=== PATIENT | female | born 1980 | race Hispanic/Latino ===

== ENCOUNTER 2016-10-22 07:17 | Emergency (ER) | payer OTHER ==
[2016-10-22 07:53] LABS: Hematocrit 44.7 % (30.3-42.9); Hemoglobin 15.2 gm/dl (10.1-14.3); Mean Corpuscular HGB Conc 34 % (30-34); Mean Corpuscular Hemoglobin 33 pg (28-32); Mean Corpuscular Volume 96 fl (79-97); Platelet Count 367 K/mm3 (140-440); Red Blood Count 4.64 M/mm3 (3.65-5.03); Red Cell Distribution Width 12.9 % (13.2-15.2); White Blood Count 19.2 K/mm3 (4.5-11.0)
[2016-10-22 08:10] LABS: Anion Gap 21 mmol/L; Blood Urea Nitrogen 10 mg/dL (7-17); Calcium 9.1 mg/dL (8.4-10.2); Carbon Dioxide 25 mmol/L (22-30); Chloride 99.7 mmol/L (98-107); Glucose 121 mg/dL (65-100); Potassium 4.4 mmol/L (3.6-5.0); Sodium 141 mmol/L (137-145)
[2016-10-22 08:13] LABS: Bilirubin,Urine NEG (Negative); Blood,Urine NEG (Negative); Ketones,Urine NEG (Negative); Leukocyte Esterase,Urine SM (Negative); Mucus,Urine 2+ /HPF; Nitrite,Urine NEG (Negative); Protein,Urine <15 mg/dL mg/dL (Negative); Urobilinogen,Urine < 2.0 mg/dL (<2.0)
[2016-10-22 08:35] LABS: Basophils % (Manual) 0 % (0.0-1.8); Blastocytes % (Manual) 0 %; Eosinophils % (Manual) 0 % (0.0-4.3)
[2016-10-22 08:36] LABS: Diff Status Complete; RBC Morphology Normal
--- NOTE | 2016-10-22 11:06 | Emergency Department Report ---
ED General Adult HPI - General Chief complaint: Nausea/Vomiting/Diarrhea Stated complaint: SEVERE VOMITING/DIARRHEA Time Seen by Provider: 10/22/16 10:56 Source: patient Mode of arrival: Ambulatory Limitations: No Limitations - History of Present Illness Initial comments: This is a 36-year-old female. She is previously unknown to me. Patient's primary care doctor is Dr. Merchant, through the [place] [facility] [place]. Patient was diagnosed last week with influenza/influenza-like illness, and deemed not to be a candidate for Tamiflu therapy. She was prescribed albuterol, amoxicillin, prednisone for cough and mucus production. Patient reports that her cough and mucus production have somewhat improved. She reports that last night she was feeling much better, and then went out with some friends. She reports drinking 4 beers, and having a few shots. She reports that after that, she developed nausea, vomiting, diarrhea. Nausea and vomiting is clear, nonbloody and nonbilious. Diarrhea is watery and yellow. Diarrhea has essentially resolved. Still mildly nauseous. No chest pain. Positive mild cough. No irritative or obstructive urinary symptoms. -: Gradual Consistency: now resolved Improves with: rest Worsens with: eating, other (symptoms worsened with consuming alcohol) Associated Symptoms: cough, nausea/vomiting - Related Data Home Medications Medication Instructions Recorded Confirmed Last Taken Amoxicillin [Trimox] 500 mg PO Q8HR 10/22/16 10/22/16 10/21/16 predniSONE [Deltasone] 10 mg PO QDAY 10/22/16 10/22/16 10/21/16 Previous Rx's Medication Instructions Recorded Last Taken Type Dicyclomine [Bentyl] 10 mg PO QID PRN #20 capsule 10/22/16 Unknown Rx Ondansetron [Zofran Odt] 4 mg PO QID PRN #20 tab.rapdis 10/22/16 Unknown Rx Allergies Allergy/AdvReac Type Severity Reaction Status Date / Time No Known Allergies Allergy Verified 11/15/14 16:47 ED Review of Systems ROS: Stated complaint: SEVERE VOMITING/DIARRHEA Other details as noted in HPI Constitutional: malaise Eyes: denies: vision change ENT: congestion. denies: epistaxis Respiratory: cough Cardiovascular: as per HPI Gastrointestinal: nausea Genitourinary: denies: urgency, dysuria Musculoskeletal: myalgia Skin: denies: lesions Neurological: weakness Psychiatric: anxiety. denies: homicidal thoughts, suicidal thoughts ED Past Medical Hx - Past Medical History Previous Medical History?: Yes Hx Psychiatric Treatment: Yes (DEPRESSION , ANXIETY) Additional medical history: HYPOTHYROID - Surgical History Past Surgical History?: Yes Additional Surgical History: TONSILLECTOMY - Social History Smoking Status: Former Smoker Substance Use Type: Alcohol, Prescribed - Medications Home Medications: Home Medications Medication Instructions Recorded Confirmed Last Taken Type Amoxicillin [Trimox] 500 mg PO Q8HR 10/22/16 10/22/16 10/21/16 History Dicyclomine [Bentyl] 10 mg PO QID PRN #20 capsule 10/22/16 Unknown Rx Ondansetron [Zofran Odt] 4 mg PO QID PRN #20 tab.rapdis 10/22/16 Unknown Rx predniSONE [Deltasone] 10 mg PO QDAY 10/22/16 10/22/16 10/21/16 History ED Physical Exam - General Limitations: No Limitations General appearance: alert, in no apparent distress, obese - Head Head exam: Present: atraumatic, normocephalic - Eye Eye exam: Present: normal appearance, EOMI. Absent: nystagmus - ENT ENT exam: Present: normal exam, normal orophraynx, mucous membranes moist, normal external ear exam - Neck Neck exam: Present: normal inspection - Respiratory Respiratory exam: Present: normal lung sounds bilaterally. Absent: respiratory distress, wheezes, rales, rhonchi, stridor, chest wall tenderness - Cardiovascular Cardiovascular Exam: Present: regular rate, normal rhythm, normal heart sounds. Absent: bradycardia, tachycardia, irregular rhythm, systolic murmur, diastolic murmur, rubs, gallop - GI/Abdominal GI/Abdominal exam: Present: soft, normal bowel sounds. Absent: distended, tenderness, guarding, rebound, rigid, pulsatile mass - Extremities Exam Extremities exam: Present: normal inspection, full ROM, normal capillary refill. Absent: tenderness, pedal edema, joint swelling, calf tenderness - Back Exam Back exam: Present: normal inspection, full ROM. Absent: tenderness, CVA tenderness (R), CVA tenderness (L), muscle spasm, paraspinal tenderness, vertebral tenderness - Neurological Exam Neurological exam: Present: alert, oriented X3, normal gait, other (Extraocular movements intact. Tongue midline. No facial droop. Facial sensation intact to light touch in the V1, V2, V3 distribution bilaterally. 5 and 5 strength in 4 extremities.. Sensation is intact to light touch in 4 extremities.). Absent : motor sensory deficit - Psychiatric Psychiatric exam: Present: normal affect, normal mood - Skin Skin exam: Present: warm, dry, intact, normal color. Absent: rash ED Course Vital Signs 10/22/16 10/22/16 10/22/16 07:28 10:11 12:06 Temperature 97.7 F Pulse Rate 104 H 83 Respiratory 20 18 18 Rate Blood Pressure 152/107 Blood Pressure 163/97 [Left] O2 Sat by Pulse 98 Oximetry 10/22/16 10/22/16 12:30 13:00 Temperature Pulse Rate 89 89 Respiratory 18 18 Rate Blood Pressure Blood Pressure 164/91 163/97 [Left] O2 Sat by Pulse 99 99 Oximetry - Reevaluation(s) Reevaluation #1: 10/22/16 11:51 Differential diagnosis: Alcohol poisoning, resolved alcohol intoxication, antibiotic side effect, influenza-like illness, pneumonia Assessment and plan: 36-year-old female recently on amoxicillin and prednisone and albuterol for influenza-like illness. She is afebrile with reassuring vital signs with the exception of slightly elevated blood pressure. Tachycardia is resolved. Abdomen is soft and benign, with no rebound, guarding or peritoneal signs. Leukocytosis is appreciated, slightly presents secondary to steroids, as well as viral illness. Pulmonary exam is unremarkable, x-ray of the chest is clear, I don't believe she requires antibiotic therapy. She is counseled that she may discontinue antibiotic therapy. She was given IV fluids, nausea medication, and felt improved. She is not homicidal or suicidal, she is clinically sober, and does not require 1013. The patient is instructed to be judicious with consuming alcohol. She will be discharged with nausea medication, nonnarcotic abdominal pain medication. She is counseled to follow up with a primary care doctor. Return precautions were extensively reviewed. Reevaluation #2: 10/22/16 13:10 Resting comfortably. Feels improved. Tachycardia resolved, resting heart rate currently in the 90s. Still somewhat hypertensive. Patient is instructed to follow up with her primary care doctor for elevated blood pressure. Of note, the patient was inadvertently given bentyl IV instead of intramuscularly. This was discussed with Maci at the [facility]. As for [facility], this medication has a rapid half- life. The patient has no redness, pain, swelling at the injection site. She has no symptoms at this time. This was specifically discussed with the patient , who verbalized understanding. Patient will be discharged at this time. Return precautions were extensively reviewed. ED Medical Decision Making - Lab Data Result diagrams: 10/22/16 07:40 10/22/16 07:40 Vital Signs 10/22/16 10/22/16 07:28 10:11 Temperature 97.7 F Pulse Rate 104 H Respiratory 20 18 Rate Blood Pressure 152/107 O2 Sat by Pulse 98 Oximetry Lab Results 10/22/16 10/22/16 10/22/16 Range/Units 07:40 07:40 Unknown WBC 19.2 H (4.5-11.0) K/mm3 RBC 4.64 (3.65-5.03) M/mm3 Hgb 15.2 H (10.1-14.3) gm/dl Hct 44.7 H (30.3-42.9) % MCV 96 (79-97) fl MCH 33 H (28-32) pg MCHC 34 (30-34) % RDW 12.9 L (13.2-15.2) % Plt Count 367 (140-440) K/mm3 Add Manual Diff Complete Total Counted 100 Seg Neuts % (Manual) 82.0 H (40.0-70.0) % Band Neutrophils % 0 % Lymphocytes % (Manual) 13.0 L (13.4-35.0) % Reactive Lymphs % (Man) 0 % Monocytes % (Manual) 5.0 (0.0-7.3) % Eosinophils % (Manual) 0 (0.0-4.3) % Basophils % (Manual) 0 (0.0-1.8) % Metamyelocytes % 0 % Myelocytes % 0 % Promyelocytes % 0 % Blast Cells % 0 % Nucleated RBC % Not Reportable Seg Neutrophils # Man 15.7 H (1.8-7.7) K/mm3 Band Neutrophils # 0.0 K/mm3 Lymphocytes # (Manual) 2.5 (1.2-5.4) K/mm3 Abs React Lymphs (Man) 0.0 K/mm3 Monocytes # (Manual) 1.0 H (0.0-0.8) K/mm3 Eosinophils # (Manual) 0.0 (0.0-0.4) K/mm3 Basophils # (Manual) 0.0 (0.0-0.1) K/mm3 Metamyelocytes # 0.0 K/mm3 Myelocytes # 0.0 K/mm3 Promyelocytes # 0.0 K/mm3 Blast Cells # 0.0 K/mm3 WBC Morphology Not Reportable Hypersegmented Neuts Not Reportable Hyposegmented Neuts Not Reportable Hypogranular Neuts Not Reportable Smudge Cells Not Reportable Toxic Granulation Not Reportable Toxic Vacuolation Not Reportable Dohle Bodies Not Reportable Pelger-Huet Anomaly Not Reportable Emely Rods Not Reportable Platelet Estimate Appears normal Clumped Platelets Not Reportable Plt Clumps, EDTA Not Reportable Large Platelets Not Reportable Giant Platelets Not Reportable Platelet Satelliting Not Reportable Plt Morphology Comment Not Reportable RBC Morphology Normal Dimorphic RBCs Not Reportable Polychromasia Not Reportable Hypochromasia Not Reportable Poikilocytosis Not Reportable Anisocytosis Not Reportable Microcytosis Not Reportable Macrocytosis Not Reportable Spherocytes Not Reportable Pappenheimer Bodies Not Reportable Sickle Cells Not Reportable Target Cells Not Reportable Tear Drop Cells Not Reportable Ovalocytes Not Reportable Helmet Cells Not Reportable Bustillos-Olmito Bodies Not Reportable [place] Rings Not Reportable [place] Cells Not Reportable Bite Cells Not Reportable Crenated Cell Not Reportable Elliptocytes Not Reportable Acanthocytes (Spur) Not Reportable Rouleaux Not Reportable Hemoglobin C Crystals Not Reportable Schistocytes Not Reportable Malaria parasites Not Reportable [place] Bodies Not Reportable Hem Pathologist Commnt No Sodium 141 (137-145) mmol/L Potassium 4.4 (3.6-5.0) mmol/L Chloride 99.7 (98-107) mmol/L Carbon Dioxide 25 (22-30) mmol/L Anion Gap 21 mmol/L BUN 10 (7-17) mg/dL Creatinine 0.8 (0.7-1.2) mg/dL Estimated GFR > 60 ml/min BUN/Creatinine Ratio 12.50 % Glucose 121 H (65-100) mg/dL Calcium 9.1 (8.4-10.2) mg/dL Urine Color Yellow (Yellow) Urine Turbidity Slightly-cloudy (Clear) Urine pH 5.0 (5.0-7.0) Ur Specific [place] 1.020 (1.003-1.030) Urine Protein <15 mg/dl (Negative) mg/dL Urine Glucose (UA) Neg (Negative) mg/dL Urine Ketones Neg (Negative) mg/dL Urine Blood Neg (Negative) Urine Nitrite Neg (Negative) Ur Reducing Substances Not Reportable Urine Bilirubin Neg (Negative) Urine Ictotest Not Reportable Urine Urobilinogen < 2.0 (<2.0) mg/dL Ur Leukocyte Esterase Sm (Negative) Urine WBC (Auto) 10.0 H (0.0-6.0) /HPF Urine RBC (Auto) 6.0 (0.0-6.0) /HPF U Epithel Cells (Auto) 5.0 (0-13.0) /HPF Hyaline Casts 7 /LPF Urine Mucus 2+ /HPF Urine HCG, Qual Negative (Negative) - Radiology Data Radiology results: report reviewed, image reviewed X-ray of the chest negative for acute disease. Critical care attestation.: If time is entered above; I have spent that time in minutes in the direct care of this critically ill patient, excluding procedure time. ED Disposition Clinical Impression: Nausea & vomiting Qualifiers: Vomiting type: unspecified Vomiting Intractability: non-intractable Qualified Code(s): R11.2 - Nausea with vomiting, unspecified Disposition: DISCHARGED TO HOME OR SELFCARE Is pt being admited?: No Does the pt Need Aspirin: No Condition: Stable Instructions: Acute Bronchitis (ED) Additional Instructions: Continue current outpatient medications, with the exception of amoxicillin, which she may discontinue. Take pain medication and nausea medication as needed /directed. Follow-up with a primary care doctor within the next week. Be cautious when consuming alcohol. Return to the ER right away with fevers or chills, chest pain or shortness of breath, intractable nausea or vomiting, inability to tolerate liquid feeds. Please note that blood pressure was somewhat elevated while in the emergency department. This should be followed up by her primary care doctor within the recommended timeframe. Long-term complications of elevated blood pressure include heart attack, stroke , disability, , paralysis, loss of quality of life. Prescriptions: Dicyclomine [Bentyl] 10 mg PO QID PRN #20 capsule PRN Reason: Pain Ondansetron [Zofran Odt] 4 mg PO QID PRN #20 tab.rapdis PRN Reason: Nausea Referrals: HAN MCKINNON [Other] - 3-5 Days
[2016-10-22] MEDS: PEPCID IV ONE (12:20)
[2016-10-22] MEDS: NACL 0.9% 1000 ML 1,000 ML IV ONE (12:20)
[2016-10-22] MEDS: ZOFRAN IV ONE (12:21)
[2016-10-22] MEDS: BENTYL IM ONE (12:27)
[2016-10-22 13:18] VITALS: BP 163/97
--- NOTE | 2016-10-22 14:21 | XRay Report ---
ROUTINE CHEST, TWO VIEWS: HISTORY: Cough. The trachea, heart, mediastinal contour, lung mckinney and bony thorax are unremarkable. IMPRESSION: Unremarkable chest x-ray.
== END 2016-10-22 13:53 | disposition home or self-care (01) ==
LOC: ED 07:17
DX: R11.2 Nausea with vomiting, unspecified (principal); F32.9 Major depressive disorder, single episode, unspecified; F41.9 Anxiety disorder, unspecified; E03.9 Hypothyroidism, unspecified; Z87.891 Personal history of nicotine dependence; Z90.89 Acquired absence of other organs
CPT/HCPCS: 36415; 71020; 80048; 81001; 81025; 85007; 85025; 96361; 96372; 96374; 96375; 99284; J0500; J2405; J7030